=== PATIENT | male | born 1990 | race African-American/Black ===

== ENCOUNTER 2023-05-05 11:07 | Outpatient (CLI) | payer MEDICARE, MEDICAID | END 2023-05-05 11:08 | disposition home or self-care (01) | LOC: SCSRAD 11:07 | PROVIDERS: ATTEND Family Medicine Sports Medicine | DX: M25.512 Pain in left shoulder (principal) ==

== ENCOUNTER 2024-01-03 14:46 | Inpatient (IN) | payer MEDICARE, MEDICAID ==
[2024-01-03 15:35] LABS: #Basophils 0.03 10x3/uL (0.0-0.2); %Basophils 0.8 % (0.0-1.0); %Eosinophils 4.6 % (0.0-10.0); %Lymphocytes 27.6 % (21.0-51.0); %Monocytes 14.7 % (0.0-10.0); %Neutrophils 52.3 % (42.0-75.0); Hematocrit 29.3 % (42.0-52.0); Hemoglobin 9.4 g/dL (14.0-18.0); Mean Corpuscular HGB CONC 32.1 g/dL (32.0-36.0); Mean Corpuscular Hemoglobin 30.6 pg (27.0-31.0); Mean Corpuscular Volume 95.4 fL (78.0-98.0); Mean Platelet Volume 10.4 fL (7.4-10.4); Platelet Count 224 10x3/uL (130-400); RBC Distribution Width 13.8 % (11.5-14.5); Red Blood Cell (RBC) Count 3.07 mill/uL (4.70-6.10)
[2024-01-03 16:09] LABS: ALT (SGPT) 49 U/L (8-55); AST (SGOT) 32 U/L (5-34); Albumin 3.6 g/dL (3.5-5.0); Alkaline Phosphatase 179 U/L (40-110); Anion Gap 18 mmol/L (10-20); BUN (Urea Nitrogen) 53 mg/dL (8.9-20.6); Bilirubin, Total 0.7 mg/dL (0.2-1.2); Calc. Creatinine Clearance 0 mL/min (70-130); Calcium 6.3 mg/dL (7.8-10.44); Carbon Dioxide 17 mmol/L (22-29); Chloride 112 mmol/L (98-107); Estimated GFR 8; Globulin 4.1 g/dL (2.4-3.5); Glucose 74 mg/dL (70-105); Potassium 4.9 mmol/L (3.5-5.1); Protein, Total 7.7 g/dL (6.0-8.3); Sodium 142 mmol/L (136-145)
[2024-01-03 16:11] LABS: Troponin I 0.015 ng/mL (< 0.028)
[2024-01-03 17:26] LABS: Bacteria/HPF None Seen HPF (None Seen); Bilirubin Negative (Negative); Blood, Urine Trace (Negative); CAUTI Indications for Culture Alt mental st,lethar; Clarity Clear (Clear); Glucose, Urine (Dipstick) Normal (Negative); Ketone, Urine Negative (Negative); Leukocyte Negative Leu/uL (Negative); Nitrite Negative (Negative); Protein, Urine (Dipstick) 100 mg/dL (Neg-Trace); RBC/HPF 0-3 HPF (0-3); Specific Gravity, Urine 1.009 (1.002-1.036); Squamous Epithelial None Seen HPF (0-3); Urobilinogen Normal mg/dL (Less than 2); WBC/HPF 0-3 HPF (0-3); pH, Urine 6.5 (5.0-9.0)
[2024-01-03 18:07] LABS: Urine Culture Reflex No No
[2024-01-03] MEDS ORDERED: Ondansetron ODT 4 MG TAB PO PRN (18:38)
[2024-01-03] MEDS ORDERED: Dextrose 5% in Water 1,000 ML IV PRN (18:38)
[2024-01-03] MEDS ORDERED: Glucagon 1 MG/ML KIT IM PRN (18:38)
[2024-01-03] MEDS ORDERED: Ondansetron PF 4 MG/2 ML Vial IVP PRN (18:38)
[2024-01-03] MEDS ORDERED: Dextrose 50% Abboject 50 ML SYRINGE SLOW IVP PRN (18:38)
[2024-01-03] MEDS ORDERED: Acetaminophen 650 MG Suppository PR PRN (18:38)
[2024-01-03] MEDS ORDERED: HumaLOG 300 UNITS/3 ML VIAL SC PRN ×2 (18:38)
[2024-01-03 21:54] VITALS: BMI 28.0
[2024-01-04 04:03] LABS: #Basophils 0.03 10x3/uL (0.0-0.2); %Basophils 0.8 % (0.0-1.0); %Eosinophils 4.9 % (0.0-10.0); %Lymphocytes 18.2 % (21.0-51.0); %Monocytes 12.7 % (0.0-10.0); %Neutrophils 63.1 % (42.0-75.0); Hematocrit 26.9 % (42.0-52.0); Hemoglobin 8.6 g/dL (14.0-18.0); Mean Corpuscular Hemoglobin 29.8 pg (27.0-31.0); Mean Corpuscular Volume 93.1 fL (78.0-98.0); Mean Platelet Volume 10.5 fL (7.4-10.4); Platelet Count 205 10x3/uL (130-400); RBC Distribution Width 13.6 % (11.5-14.5); Red Blood Cell (RBC) Count 2.89 mill/uL (4.70-6.10)
[2024-01-04 04:50] LABS: ALT (SGPT) 38 U/L (8-55); AST (SGOT) 27 U/L (5-34); Albumin 3.3 g/dL (3.5-5.0); Alkaline Phosphatase 166 U/L (40-110); Anion Gap 17 mmol/L (10-20); BUN (Urea Nitrogen) 50 mg/dL (8.9-20.6); Bilirubin, Total 0.6 mg/dL (0.2-1.2); Calc. Creatinine Clearance 14 mL/min (70-130); Calcium 6.1 mg/dL (7.8-10.44); Carbon Dioxide 19 mmol/L (22-29); Chloride 109 mmol/L (98-107); Estimated GFR 8; Globulin 3.7 g/dL (2.4-3.5); Glucose 119 mg/dL (70-105); Potassium 5.5 mmol/L (3.5-5.1); Sodium 139 mmol/L (136-145)
[2024-01-04] MEDS: Calcium Gluc 4.6 MEQ/10 ML (100 MG/ML) SLOW IVP ONE (05:16)
[2024-01-04] MEDS: CALCIUM GLUC 1 GM/NS 50 ML 1 GM in Premix 1 BAG IVPB SCH (05:19)
[2024-01-04] MEDS ORDERED: Heparin 10,000 UNITS/ 10 ML VIAL ONE ×2 (08:46→10:01)
[2024-01-04] MEDS ORDERED: Lidocaine 2% PF 5 ML VIAL ONE (10:02)
[2024-01-04] MEDS ORDERED: Bupivacaine 0.25% HCL 30 ML VIAL ONE (10:02)
[2024-01-04] MEDS ORDERED: EPINEPHrine 1 MG/ML VIAL ONE (10:02)
[2024-01-04] MEDS ORDERED: fentaNYL PF 100 MCG/2 ML SYRINGE ONE (10:44)
[2024-01-04] MEDS ORDERED: PROPOFOL 20 ML ONE (10:44)
[2024-01-04] MEDS ORDERED: Lidocaine 2% PF 100 mg/5 ml Syringe ONE (10:45)
[2024-01-04] MEDS ORDERED: Midazolam HCl 2 mg/2 ml Vial ONE (10:45)
[2024-01-04] MEDS ORDERED: Lidocaine 2% 6 ML (Jelly) SYR ONE (10:46)
[2024-01-04] MEDS ORDERED: Lidocaine 1% MPF 2 ML VIAL ONE (10:51)
[2024-01-04] MEDS ORDERED: CEFAZOLIN 2 GM VIAL ONE (10:54)
[2024-01-04] MEDS ORDERED: Sodium Chloride 0.9% 0 ML ONE (10:54)
[2024-01-04] MEDS ORDERED: Clindamycin/D5W 900 mg/50 ml Premix Bag ONE (10:59)
[2024-01-04] MEDS ORDERED: Ondansetron PF 4 MG/2 ML Vial ONE (11:18)
[2024-01-04] MEDS ORDERED: fentaNYL 50 mcg/mL 1 mL Vial ONE (12:47)
[2024-01-04 17:41] LABS: Hep B Core Total Index 0.17 S/CO (0-0.79); Hep C Index 0.08 S/CO (0-0.79)
[2024-01-04 17:44] LABS: HBsAg Index 0.24 S/CO (0-0.99); Hep B Core Total Ab NONREACTIVE (NonReactive); Hep B Surf Ag NONREACTIVE S/CO (NonReactive); Hep C IgG Ab NONREACTIVE S/CO (NonReactive)
[2024-01-04 18:12] LABS: Hep B Surf AB GRAYZONE (NonReactive)
[2024-01-04 18:17] LABS: HBSAB Concentration 10.39 mIU/mL
[2024-01-04] MEDS: Acetaminophen 325 MG TAB PO PRN (20:28)
[2024-01-04] MEDS: Atorvastatin Calcium 40 MG TAB PO SCH (22:55)
[2024-01-05] MEDS: Tuberculin PPD 0.1 ML VIAL I-DERMAL SCH (02:18)
[2024-01-05 04:50] LABS: #Basophils 0.03 10x3/uL (0.0-0.2); %Basophils 0.5 % (0.0-1.0); %Eosinophils 3.5 % (0.0-10.0); %Lymphocytes 14.5 % (21.0-51.0); %Monocytes 12.5 % (0.0-10.0); %Neutrophils 68.8 % (42.0-75.0); Hemoglobin 8.1 g/dL (14.0-18.0); Mean Corpuscular HGB CONC 32.4 g/dL (32.0-36.0); Mean Corpuscular Hemoglobin 30.8 pg (27.0-31.0); Mean Corpuscular Volume 95.1 fL (78.0-98.0); Mean Platelet Volume 10.3 fL (7.4-10.4); Platelet Count 195 10x3/uL (130-400); RBC Distribution Width 13.7 % (11.5-14.5); Red Blood Cell (RBC) Count 2.63 mill/uL (4.70-6.10)
[2024-01-05 05:36] LABS: ALT (SGPT) 33 U/L (8-55); AST (SGOT) 23 U/L (5-34); Albumin 2.8 g/dL (3.5-5.0); Alkaline Phosphatase 145 U/L (40-110); Anion Gap 14 mmol/L (10-20); BUN (Urea Nitrogen) 37 mg/dL (8.9-20.6); Bilirubin, Total 0.6 mg/dL (0.2-1.2); Calc. Creatinine Clearance 18 mL/min (70-130); Calcium 5.4 mg/dL (7.8-10.44); Carbon Dioxide 20 mmol/L (22-29); Chloride 114 mmol/L (98-107); Estimated GFR 11; Globulin 3.1 g/dL (2.4-3.5); Glucose 145 mg/dL (70-105); Potassium 5.8 mmol/L (3.5-5.1); Protein, Total 5.9 g/dL (6.0-8.3); Sodium 142 mmol/L (136-145)
[2024-01-05] MEDS: Calcium Gluc 4.6 MEQ/10 ML (100 MG/ML) SLOW IVP ONE (06:29)
[2024-01-05] MEDS: CALCIUM GLUC 1 GM/NS 50 ML 1 GM in Premix 1 BAG IVPB SCH (06:33)
[2024-01-05] MEDS ORDERED: Heparin 10,000 UNITS/ 10 ML VIAL ONE (09:08)
[2024-01-05] MEDS: Sevelamer Carbonate 800 MG TAB PO SCH (11:32)
[2024-01-05] MEDS: Lisinopril 20 MG TAB PO SCH (12:01)
[2024-01-05 14:19] LABS: HBSAB Concentration 12.18 mIU/mL; HBsAg Index 0.24 S/CO (0-0.99); Hep B Core Total Ab NONREACTIVE (NonReactive); Hep B Core Total Index 0.24 S/CO (0-0.79); Hep B Surf AB REACTIVE (NonReactive); Hep B Surf Ag NONREACTIVE S/CO (NonReactive); Hep C IgG Ab NONREACTIVE S/CO (NonReactive)
[2024-01-06 05:18] LABS: Hematocrit 26.8 % (42.0-52.0); Hemoglobin 8.5 g/dL (14.0-18.0)
[2024-01-06 06:03] LABS: Anion Gap 15 mmol/L (10-20); BUN (Urea Nitrogen) 30 mg/dL (8.9-20.6); Calc. Creatinine Clearance 18 mL/min (70-130); Calcium 6.8 mg/dL (7.8-10.44); Carbon Dioxide 25 mmol/L (22-29); Chloride 106 mmol/L (98-107); Estimated GFR 11; Glucose 78 mg/dL (70-105); Potassium 4.9 mmol/L (3.5-5.1); Sodium 141 mmol/L (136-145)
[2024-01-06 06:23] LABS: Hep B Core Total Index 0.11 S/CO (0-0.79); Hep C Index 0.08 S/CO (0-0.79)
[2024-01-06 06:26] LABS: HBsAg Index 0.28 S/CO (0-0.99); Hep B Core Total Ab NONREACTIVE (NonReactive); Hep B Surf Ag NONREACTIVE S/CO (NonReactive); Hep C IgG Ab NONREACTIVE S/CO (NonReactive)
[2024-01-06] MEDS ORDERED: Heparin 10,000 UNITS/ 10 ML VIAL ONE (10:26)
[2024-01-06 11:29] LABS: HBSAB Concentration 10.64 mIU/mL
[2024-01-06 11:30] LABS: Hep B Surf AB EQUIVOCAL (NonReactive)
[2024-01-06 14:18] LABS: Hep B Surface AG-Rflx Sendout Negative (Negative); Hepatitis B Core Total Negative (Negative); Hepatitis B Surface AB-Sendout Reactive (.)
[2024-01-07] MEDS: Amlodipine 5 MG TAB PO SCH ×2 (06:24→15:35)
[2024-01-07] MEDS: READ PPD TEST SITE PO SCH (06:24)
[2024-01-07] MEDS ORDERED: Heparin 10,000 UNITS/ 10 ML VIAL ONE (09:25)
[2024-01-07 17:09] VITALS: BP 164/94; TEMP 98.1
[2024-01-08] MEDS ORDERED: READ PPD TEST SITE PO SCH (02:00)
== END 2024-01-07 16:59 | disposition home or self-care (01) | DRG 673 ==
LOC: ERS 14:46 → 2SW 18:44 → OBSVTOIN 01-04 12:09
PROVIDERS: ADMIT Physician Assistant; ATTEND Family Medicine
PROC: 0JH63XZ Insertion of Tunneled Vascular Access Device into Chest Subcutaneous Tissue and Fascia, Percutaneous Approach (ICD-10-PCS; principal; 2024-01-04)
PROC: 02HV33Z Insertion of Infusion Device into Superior Vena Cava, Percutaneous Approach (ICD-10-PCS; 2024-01-04)
PROC: B5181ZA Fluoroscopy of Superior Vena Cava using Low Osmolar Contrast, Guidance (ICD-10-PCS; 2024-01-04)
PROC: B548ZZA Ultrasonography of Superior Vena Cava, Guidance (ICD-10-PCS; 2024-01-04)
PROC: 5A1D70Z Performance of Urinary Filtration, Intermittent, Less than 6 Hours Per Day (ICD-10-PCS; 2024-01-04)
PROC: 3E033XZ Introduction of Vasopressor into Peripheral Vein, Percutaneous Approach (ICD-10-PCS; 2024-01-04)
DX: I12.0 Hypertensive chronic kidney disease with stage 5 chronic kidney disease or end stage renal disease (principal); N18.6 End stage renal disease; E87.20 Acidosis, unspecified; E11.22 Type 2 diabetes mellitus with diabetic chronic kidney disease; E83.51 Hypocalcemia; D63.1 Anemia in chronic kidney disease; E87.5 Hyperkalemia; Z88.0 Allergy status to penicillin; Z90.49 Acquired absence of other specified parts of digestive tract; Z89.422 Acquired absence of other left toe(s); Z98.890 Other specified postprocedural states; Z99.2 Dependence on renal dialysis
CPT/HCPCS: 36415; 36416; 71045; 80048; 80053; 81001; 84484; 85014; 85018; 85025; 86580; 86704; 86706; 86803; 87340; 90935; 93005; 96365; A6258; C1751; C1752; G0257; G0378; J0171; J0613; J0665; J1644; J2001; J2250; J2405; J2704; J3010; J3490

== ENCOUNTER 2024-08-27 13:01 | Inpatient (IN) | payer MEDICARE, MEDICAID ==
[2024-08-27 14:09] LABS: Hematocrit 34.2 % (42.0-52.0); Hemoglobin 11.3 g/dL (14.0-18.0); Mean Corpuscular Hemoglobin 32.5 pg (27.0-31.0); Mean Corpuscular Volume 98.3 fL (78.0-98.0); Mean Platelet Volume 9.6 fL (7.4-10.4); Platelet Count 160 10x3/uL (130-400); RBC Distribution Width 16.4 % (11.5-14.5); Red Blood Cell (RBC) Count 3.48 mill/uL (4.70-6.10)
[2024-08-27 14:25] LABS: ALT (SGPT) 25 U/L (Less than 45); AST (SGOT) 35 U/L (11-34); Albumin 3.5 g/dL (3.1-4.5); Alkaline Phosphatase 68 U/L (40-110); Anion Gap 18 mmol/L (10-20); BUN (Urea Nitrogen) 45 mg/dL (8.9-20.6); Bilirubin, Total 0.4 mg/dL (0.3-1.2); Calc. Creatinine Clearance 0 mL/min (70-130); Calcium 7.8 mg/dL (7.8-10.44); Carbon Dioxide 24 mmol/L (22-29); Chloride 101 mmol/L (98-107); Estimated GFR 5; Globulin 4.1 g/dL (2.4-3.5); Glucose 111 mg/dL (70-105); Lipase 12 U/L (8-78); Protein, Total 7.6 g/dL (6.0-8.3); Sodium 139 mmol/L (136-145)
[2024-08-27 14:28] LABS: Troponin I 0.084 ng/mL (< 0.028)
[2024-08-27 14:30] LABS: Anisocytosis SLIGHT = 6-15 cells HPF (0-5); Band 3 % (5-11); Eosinophils 1 % (0-10); Lymphocytes 3 % (21-51); Monocytes 13 % (0-10); Neutrophil 79 % (42-75); Platelet Adequacy Comment Platelets Normal; Polychromasia SLIGHT = 2-3 cells HPF (0-2); Reactive Lymphocytes 1 % (0-10); Smudge Cells 11.9 %; Tear Drops SLIGHT = 2-5 cells HPF (0-1)
[2024-08-27] MEDS ORDERED: Morphine 2 MG/ML VIAL ONE (14:35)
[2024-08-27] MEDS ORDERED: Ondansetron PF 4 MG/2 ML Vial ONE (14:35)
[2024-08-27 18:01] LABS: Troponin I 0.087 ng/mL (< 0.028)
[2024-08-27] MEDS ORDERED: Heparin 5,000 UNITS/ML VIAL ONE (18:47)
[2024-08-27] MEDS ORDERED: Pantoprazole 40 MG VIAL ONE (18:48)
[2024-08-27] MEDS ORDERED: Sucralfate 1 GM/10 ML UDCUP ONE (18:48)
[2024-08-27] MEDS ORDERED: Aspirin Chewable 81 MG TAB ONE (18:48)
[2024-08-27] MEDS ORDERED: Heparin 25,000 units/D5W 500 ML IV SCH (19:00)
[2024-08-27] MEDS ORDERED: Heparin 25,000 UNITS/D5W 500 ml bag ONE (19:07)
[2024-08-27] MEDS ORDERED: Ondansetron ODT 4 MG TAB PO PRN (20:01)
[2024-08-27] MEDS ORDERED: Dextrose 5% in Water 1,000 ML IV PRN (20:04)
[2024-08-27] MEDS ORDERED: Glucagon 1 MG/ML KIT IM PRN (20:04)
[2024-08-27] MEDS ORDERED: Insulin Lispro 100 UNIT/ML 10 ML VIAL SC PRN ×2 (20:04)
[2024-08-27] MEDS ORDERED: Dextrose 50% Abboject 50 ML SYRINGE SLOW IVP PRN (20:04)
[2024-08-27] MEDS: Morphine 2 MG/ML VIAL SLOW IVP PRN (22:58)
[2024-08-27 23:20] LABS: Troponin I 0.083 ng/mL (< 0.028)
[2024-08-27 23:31] LABS: Influenza A by NAA DETECTED (NotDetected); Influenza B by NAA Not Detected (NotDetected); SARS-CoV-2 NAA Rapid Test Not Detected (NotDetected)
[2024-08-27 23:54] VITALS: BMI 26.5
[2024-08-28] MEDS: Oseltamivir 75 MG CAP PO SCH (00:14)
[2024-08-28] MEDS: Acetaminophen 325 MG TAB PO PRN (00:16)
[2024-08-28] MEDS: Lidocaine 2% Viscous Solution 10 ML, Aluminum & Magnesium Hydroxide 30 ML SSW SCH (00:45)
[2024-08-28] MEDS: Ondansetron PF 4 MG/2 ML Vial IVP PRN (02:03)
[2024-08-28 05:20] LABS: Hematocrit 35.3 % (42.0-52.0); Hemoglobin 11.3 g/dL (14.0-18.0); Mean Corpuscular Hemoglobin 32.2 pg (27.0-31.0); Mean Corpuscular Volume 100.6 fL (78.0-98.0); Mean Platelet Volume 9.7 fL (7.4-10.4); Platelet Count 156 10x3/uL (130-400); RBC Distribution Width 16.5 % (11.5-14.5); Red Blood Cell (RBC) Count 3.51 mill/uL (4.70-6.10)
[2024-08-28 05:28] LABS: Anion Gap 19 mmol/L (10-20); BUN (Urea Nitrogen) 42 mg/dL (8.9-20.6); Calc. Creatinine Clearance 8 mL/min (70-130); Calcium 7.9 mg/dL (7.8-10.44); Carbon Dioxide 24 mmol/L (22-29); Chloride 102 mmol/L (98-107); Estimated GFR 5; Glucose 112 mg/dL (70-105); Potassium 3.6 mmol/L (3.5-5.1); Sodium 141 mmol/L (136-145)
[2024-08-28 07:33] LABS: Anisocytosis SLIGHT = 6-15 cells HPF (0-5); Band 8 % (5-11); Burr Cells SLIGHT = 2-5 cells HPF (0-1); Elliptocytes SLIGHT = 2-5 cells HPF (0-1); Eosinophils 1 % (0-10); Lymphocytes 10 % (21-51); Macrocytosis SLIGHT = 6-15 cells HPF (0-5); Monocytes 14 % (0-10); Neutrophil 67 % (42-75); Platelet Adequacy Comment Platelets Normal; Polychromasia SLIGHT = 2-3 cells HPF (0-2)
[2024-08-28] MEDS: Sevelamer Carbonate 800 MG TAB PO SCH (08:51)
[2024-08-28] MEDS: Lisinopril 20 MG TAB PO SCH (08:51)
[2024-08-28] MEDS: Pantoprazole 40 MG VIAL IVP SCH (08:52)
[2024-08-28] MEDS ORDERED: Metoclopramide HCl 10 MG (2 mL) VIAL IVP PRN (09:52)
[2024-08-28] MEDS: Atorvastatin Calcium 40 MG TAB PO SCH (21:13)
[2024-08-29 04:20] LABS: Phosphorus 6.3 mg/dL (2.5-4.5)
[2024-08-29 04:23] LABS: Anion Gap 19 mmol/L (10-20); BUN (Urea Nitrogen) 39 mg/dL (8.9-20.6); Calc. Creatinine Clearance 8 mL/min (70-130); Calcium 7.8 mg/dL (7.8-10.44); Carbon Dioxide 26 mmol/L (22-29); Chloride 103 mmol/L (98-107); Estimated GFR 5; Glucose 131 mg/dL (70-105); Potassium 3.7 mmol/L (3.5-5.1); Sodium 144 mmol/L (136-145)
[2024-08-29 04:37] LABS: Hematocrit 35.2 % (42.0-52.0); Hemoglobin 11.4 g/dL (14.0-18.0); Mean Corpuscular HGB CONC 32.4 g/dL (32.0-36.0); Mean Corpuscular Hemoglobin 31.8 pg (27.0-31.0); Mean Corpuscular Volume 98.1 fL (78.0-98.0); Mean Platelet Volume 9.8 fL (7.4-10.4); Platelet Count 177 10x3/uL (130-400); RBC Distribution Width 16.3 % (11.5-14.5); Red Blood Cell (RBC) Count 3.59 mill/uL (4.70-6.10)
[2024-08-29 05:29] LABS: Band 4 % (5-11); Eosinophils 2 % (0-10); Large Platelets 5.1 % (0-5); Lymphocytes 21 % (21-51); Monocytes 13 % (0-10); Neutrophil 59 % (42-75); Platelet Adequacy Comment Platelets Normal; RBC Morphology Within Normal Limits; Smudge Cells 19.4 %
[2024-08-29] MEDS ORDERED: Oseltamivir 75 MG CAP PO SCH (09:00)
[2024-08-30 05:40] LABS: Anion Gap 21 mmol/L (10-20); BUN (Urea Nitrogen) 39 mg/dL (8.9-20.6); Calc. Creatinine Clearance 7 mL/min (70-130); Calcium 7.7 mg/dL (7.8-10.44); Carbon Dioxide 26 mmol/L (22-29); Chloride 100 mmol/L (98-107); Estimated GFR 4; Glucose 153 mg/dL (70-105); Potassium 3.7 mmol/L (3.5-5.1); Sodium 143 mmol/L (136-145)
[2024-08-30] MEDS ORDERED: Oseltamivir 75 MG CAP PO SCH ×2 (09:00)
[2024-08-30 09:09] VITALS: BP 104/67; TEMP 98.1
== END 2024-08-30 13:37 | disposition home or self-care (01) | DRG 193 ==
LOC: ERS 13:01 → OBSVTOIN 20:01 → INTOOBSV 20:01 → ERHOLD 20:01 → 2SE 21:53
PROVIDERS: ADMIT Internal Medicine; ATTEND Family Medicine
PROC: 5A1D70Z Performance of Urinary Filtration, Intermittent, Less than 6 Hours Per Day (ICD-10-PCS; principal; 2024-08-27)
DX: J10.01 Influenza due to other identified influenza virus with the same other identified influenza virus pneumonia (principal); N18.6 End stage renal disease; I12.0 Hypertensive chronic kidney disease with stage 5 chronic kidney disease or end stage renal disease; I5A Non-ischemic myocardial injury (non-traumatic); E78.5 Hyperlipidemia, unspecified; D63.1 Anemia in chronic kidney disease; E10.22 Type 1 diabetes mellitus with diabetic chronic kidney disease; Z99.2 Dependence on renal dialysis; Z90.49 Acquired absence of other specified parts of digestive tract; Z89.422 Acquired absence of other left toe(s)
CPT/HCPCS: 36415; 71045; 74176; 80048; 80053; 82010; 83690; 83880; 84100; 84484; 85025; 87070; 87205; 90935; 93005; 96374; 96375; 96376; G0257; G0378; J1644; J2272; J2405; J2470

== ENCOUNTER 2024-09-07 19:34 | Inpatient (IN) | payer MEDICARE, MEDICAID ==
[~2024-09-07 19:34] MED LIST: Iopamidol 370 76% 100 ML VIAL ONE
[2024-09-07] MEDS ORDERED: Aspirin Chewable 81 MG TAB ONE (20:28)
[2024-09-07] MEDS ORDERED: Ondansetron PF 4 MG/2 ML Vial ONE (20:28)
[2024-09-07] MEDS ORDERED: Famotidine/PF 20 mg/2ml Vial ONE (20:29)
[2024-09-07 22:22] LABS: Actual Bicarbonate (HCO3v) 28.4 mEq/L (22-28); Analyzer IN Cardio ER; Base Excess 0.9 mEq/L (-2.0 to +3.0); Calcium, Ionized (venous) 0.88 mmol/L (1.16-1.32); Chloride (VBG) 93 mmol/L (98-106); Hematocrit-VBG 59 % (42.0-52.0); Potassium (VBG) 3.73 mmol/L (3.70-5.30); Sodium 142 mmol/L (133-146); pH (venous) 7.334 (7.32-7.43)
[2024-09-07 22:27] LABS: #Basophils 0.03 10x3/uL (0.0-0.2); %Basophils 0.3 % (0.0-1.0); %Eosinophils 1.2 % (0.0-10.0); %Lymphocytes 12.3 % (21.0-51.0); %Monocytes 12.7 % (0.0-10.0); %Neutrophils 73.2 % (42.0-75.0); Hematocrit 17.1 % (42.0-52.0); Hemoglobin 5.7 g/dL (14.0-18.0); Mean Corpuscular HGB CONC 33.3 g/dL (32.0-36.0); Mean Corpuscular Hemoglobin 32.4 pg (27.0-31.0); Mean Corpuscular Volume 97.2 fL (78.0-98.0); Mean Platelet Volume 9.5 fL (7.4-10.4); Platelet Count 425 10x3/uL (130-400); RBC Distribution Width 15.9 % (11.5-14.5); Red Blood Cell (RBC) Count 1.76 mill/uL (4.70-6.10)
[2024-09-07] MEDS ORDERED: Ketorolac Tromethamine 30 MG (1 mL) VIAL ONE (22:48)
[2024-09-07] MEDS ORDERED: cefTRIAXone (ROCEPHIN) 2 GM VIAL ONE (22:48)
[2024-09-07] MEDS ORDERED: Azithromycin 500 MG VIAL ONE (22:48)
[2024-09-07] MEDS ORDERED: Sodium Chloride 0.9% 200 ML ONE (22:48)
[2024-09-07 22:49] LABS: ALT (SGPT) 20 U/L (Less than 45); AST (SGOT) 38 U/L (11-34); Acetaminophen Less than 10 mcg/mL (Less than 10); Albumin 3.2 g/dL (3.1-4.5); Alcohol Less than 10.0 mg/dL (Less than 10); Alkaline Phosphatase 77 U/L (40-110); Anion Gap 24 mmol/L (10-20); BUN (Urea Nitrogen) 50 mg/dL (8.9-20.6); Bilirubin, Total 0.5 mg/dL (0.3-1.2); Calc. Creatinine Clearance 0 mL/min (70-130); Calcium 7.6 mg/dL (7.8-10.44); Carbon Dioxide 28 mmol/L (22-29); Chloride 92 mmol/L (98-107); Estimated GFR 2; Globulin 4.8 g/dL (2.4-3.5); Glucose 75 mg/dL (70-105); Lipase 19 U/L (8-78); Magnesium 2.3 mg/dL (1.6-2.6); Potassium 3.7 mmol/L (3.5-5.1); Salicylate Less than 8.0 mg/dL (Less than 8.0); Sodium 140 mmol/L (136-145)
[2024-09-07 23:33] LABS: Troponin I 0.018 ng/mL (< 0.028)
[2024-09-07] MEDS ORDERED: Acetaminophen 325 MG TAB PO PRN (23:53)
[2024-09-07] MEDS ORDERED: Dextrose 50% Abboject 50 ML SYRINGE SLOW IVP PRN (23:53)
[2024-09-07] MEDS ORDERED: Dextrose 5% in Water 1,000 ML IV PRN (23:53)
[2024-09-07] MEDS ORDERED: Glucagon 1 MG/ML KIT IM PRN (23:53)
[2024-09-08 00:28] LABS: D-Dimer Test 1.7 mcg/mL (0.27-0.43)
[2024-09-08 00:29] LABS: #Basophils 0.03 10x3/uL (0.0-0.2); %Basophils 0.4 % (0.0-1.0); %Eosinophils 1.2 % (0.0-10.0); %Lymphocytes 13.6 % (21.0-51.0); %Neutrophils 70.4 % (42.0-75.0); Hematocrit 34.5 % (42.0-52.0); Hemoglobin 11.3 g/dL (14.0-18.0); Mean Corpuscular HGB CONC 32.8 g/dL (32.0-36.0); Mean Corpuscular Hemoglobin 31.8 pg (27.0-31.0); Mean Corpuscular Volume 97.2 fL (78.0-98.0); Mean Platelet Volume 9.4 fL (7.4-10.4); Platelet Count 289 10x3/uL (130-400); RBC Distribution Width 15.7 % (11.5-14.5); Red Blood Cell (RBC) Count 3.55 mill/uL (4.70-6.10)
[2024-09-08] MEDS ORDERED: [UNRECOGNIZED DRUG - REMARK] FS SCH (01:15)
[2024-09-08] MEDS: Lidocaine 10 ML, Aluminum & Magnesium Hydroxide 30 ML SSW SCH (02:27)
[2024-09-08] MEDS: Vancomycin (BATCH) 1.5 GM in Premix 1 BAG IVPB SCH (02:28)
[2024-09-08 05:24] LABS: Lactic Acid 1.65 mmol/L (0.50-2.20)
[2024-09-08 06:06] LABS: #Basophils Less than 0.03 10x3/uL (0.0-0.2); %Basophils 0.3 % (0.0-1.0); %Eosinophils 1.6 % (0.0-10.0); %Lymphocytes 22.6 % (21.0-51.0); %Monocytes 14.8 % (0.0-10.0); %Neutrophils 60.4 % (42.0-75.0); Hematocrit 32.9 % (42.0-52.0); Hemoglobin 10.7 g/dL (14.0-18.0); Mean Corpuscular HGB CONC 32.5 g/dL (32.0-36.0); Mean Corpuscular Hemoglobin 31.3 pg (27.0-31.0); Mean Corpuscular Volume 96.2 fL (78.0-98.0); Mean Platelet Volume 9.4 fL (7.4-10.4); Platelet Count 284 10x3/uL (130-400); RBC Distribution Width 15.9 % (11.5-14.5); Red Blood Cell (RBC) Count 3.42 mill/uL (4.70-6.10)
[2024-09-08 06:25] LABS: Anion Gap 23 mmol/L (10-20); BUN (Urea Nitrogen) 48 mg/dL (8.9-20.6); Calc. Creatinine Clearance 0 mL/min (70-130); Carbon Dioxide 26 mmol/L (22-29); Chloride 96 mmol/L (98-107); Estimated GFR 2; Glucose 122 mg/dL (70-105); Sodium 141 mmol/L (136-145)
[2024-09-08 08:54] VITALS: BMI 26.9
[2024-09-08] MEDS ORDERED: Vancomycin 1 GM in Premix 1 BAG IVPB SCH (09:00)
[2024-09-08] MEDS: Sevelamer Carbonate 800 MG TAB PO SCH (09:29)
[2024-09-08] MEDS: Cefepime 1 GM in Sodium Chloride 0.9% 100 ML IVPB SCH (09:29)
[2024-09-08] MEDS: Lisinopril 20 MG TAB PO SCH (09:29)
[2024-09-08] MEDS: metroNIDAZOLE 500 MG TAB PO SCH (09:29)
[2024-09-08] MEDS: Heparin 5,000 UNITS/ML VIAL SC SCH (09:30)
[2024-09-08] MEDS ORDERED: Heparin 5,000 UNITS/ML VIAL ONE (20:01)
[2024-09-08] MEDS ORDERED: Atorvastatin Calcium 40 MG TAB ONE (20:01)
[2024-09-08] MEDS ORDERED: metroNIDAZOLE 500 MG TAB ONE (20:01)
[2024-09-08] MEDS: Atorvastatin Calcium 40 MG TAB PO SCH (20:15)
[2024-09-08] MEDS: Ondansetron PF 4 MG/2 ML Vial IVP PRN (23:19)
[2024-09-09] MEDS: traMADol HCl 50 MG TAB PO PRN (01:23)
[2024-09-09 04:41] LABS: Hematocrit 32.5 % (42.0-52.0); Hemoglobin 10.8 g/dL (14.0-18.0); Mean Corpuscular HGB CONC 33.2 g/dL (32.0-36.0); Mean Corpuscular Volume 96.4 fL (78.0-98.0); Mean Platelet Volume 9.2 fL (7.4-10.4); Platelet Count 285 10x3/uL (130-400); RBC Distribution Width 15.7 % (11.5-14.5); Red Blood Cell (RBC) Count 3.37 mill/uL (4.70-6.10)
[2024-09-09 05:08] LABS: Anion Gap 24 mmol/L (10-20); BUN (Urea Nitrogen) 54 mg/dL (8.9-20.6); Calc. Creatinine Clearance 4 mL/min (70-130); Calcium 7.5 mg/dL (7.8-10.44); Carbon Dioxide 24 mmol/L (22-29); Chloride 95 mmol/L (98-107); Estimated GFR 2; Glucose 193 mg/dL (70-105); Potassium 3.6 mmol/L (3.5-5.1); Sodium 139 mmol/L (136-145)
[2024-09-09 06:45] LABS: HBSAB Concentration 17.75 mIU/mL; HBsAg Index 0.25 S/CO (0-0.99); Hep B Core Total Ab NONREACTIVE (NonReactive); Hep B Core Total Index 0.14 S/CO (0-0.79); Hep B Surf AB REACTIVE (NonReactive); Hep B Surf Ag NONREACTIVE S/CO (NonReactive); Hep C IgG Ab NONREACTIVE S/CO (NonReactive); Hep C Index 0.07 S/CO (0-0.79)
[2024-09-09 11:23] LABS: Vancomycin, Random 35.8 ug/mL (See Comment)
[2024-09-09] MEDS: Morphine 2 MG/ML VIAL SLOW IVP SCH (16:37)
[2024-09-09] MEDS: Prochlorperazine 10 MG/2 ML VIAL IVP SCH (17:00)
[2024-09-09] MEDS: Lorazepam 2 MG/ML VIAL SLOW IVP SCH (20:00)
[2024-09-10] MEDS: Midodrine HCl 5 MG TAB PO SCH ×2 (05:11→06:27)
[2024-09-10 08:15] LABS: Vancomycin, Trough 32.8 ug/mL
[2024-09-10 12:53] LABS: Amphetamine Not Detected (NotDetected); Barbiturates Screen Not Detected (NotDetected); Benzodiazepine Screen Not Detected (NotDetected); Cocaine Metabolite Screen Not Detected (NotDetected); Methadone Not Detected (NotDetected); Methamphetamine Not Detected (NotDetected); Opiate Screen Detected (NotDetected); Oxycodone Screen Not Detected (NotDetected); Phencyclidine (PCP) Not Detected (NotDetected); THC/Cannabinoid Screen Not Detected (NotDetected); Tricyclic Screen Not Detected (NotDetected)
[2024-09-10] MEDS: Pantoprazole 40 MG VIAL IVP SCH (14:11)
[2024-09-10] MEDS: Prochlorperazine Edisylate 10 MG in Sodium Chloride 0.9% 50 ML IVPB PRN (15:17)
[2024-09-10] MEDS: Morphine 2 MG/ML VIAL SLOW IVP PRN (15:20)
[2024-09-10] MEDS: Dicyclomine 10 MG CAP PO SCH ×2 (15:29→16:36)
[2024-09-11] MEDS: Lorazepam 2 MG/ML VIAL SLOW IVP SCH ×2 (01:39→03:40)
[2024-09-11] MEDS: Sodium Chloride 0.9% 500 ML IV SCH (02:35)
[2024-09-11 05:02] LABS: #Basophils 0.05 10x3/uL (0.0-0.2); %Basophils 0.8 % (0.0-1.0); %Eosinophils 3.8 % (0.0-10.0); %Lymphocytes 17.2 % (21.0-51.0); %Neutrophils 60.7 % (42.0-75.0); Hemoglobin 11.9 g/dL (14.0-18.0); Mean Corpuscular HGB CONC 33.1 g/dL (32.0-36.0); Mean Corpuscular Hemoglobin 32.2 pg (27.0-31.0); Mean Corpuscular Volume 97.6 fL (78.0-98.0); Mean Platelet Volume 9.4 fL (7.4-10.4); Platelet Count 314 10x3/uL (130-400); Red Blood Cell (RBC) Count 3.69 mill/uL (4.70-6.10)
[2024-09-11 05:20] LABS: ALT (SGPT) 18 U/L (Less than 45); AST (SGOT) 30 U/L (11-34); Albumin 3.3 g/dL (3.1-4.5); Alkaline Phosphatase 75 U/L (40-110); Anion Gap 26 mmol/L (10-20); BUN (Urea Nitrogen) 33 mg/dL (8.9-20.6); Bilirubin, Total 0.5 mg/dL (0.3-1.2); Calc. Creatinine Clearance 5 mL/min (70-130); Carbon Dioxide 22 mmol/L (22-29); Chloride 101 mmol/L (98-107); Estimated GFR 2; Globulin 4.8 g/dL (2.4-3.5); Glucose 145 mg/dL (70-105); Lipase 27 U/L (8-78); Potassium 3.8 mmol/L (3.5-5.1); Protein, Total 8.1 g/dL (6.0-8.3); Sodium 145 mmol/L (136-145)
[2024-09-11] MEDS: Sodium Chloride 0.9% 100 ML ONE ×2 (08:40)
[2024-09-11] MEDS: Pantoprazole 40 MG VIAL IVP SCH ×2 (09:35→15:01)
[2024-09-11] MEDS: Metoclopramide HCl 10 MG (2 mL) VIAL IVP SCH (15:01)
[2024-09-11] MEDS: Sodium Chloride 0.9% 1,000 ML IV SCH (16:14)
[2024-09-11] MEDS: Cyclobenzaprine 10 MG TAB PO SCH (22:57)
[2024-09-12 01:55] LABS: Actual Bicarbonate (HCO3v) 21.8 mEq/L (22-28); Analyzer IN Cardio ER; Base Excess -1.4 mEq/L (-2.0 to +3.0); Calcium, Ionized (venous) 0.88 mmol/L (1.16-1.32); Chloride (VBG) 97 mmol/L (98-106); Hematocrit-VBG 36 % (42.0-52.0); Hemoglobin (Hb) 12.2 g/dL (13.2-17.3); Potassium (VBG) 3.55 mmol/L (3.70-5.30); Sodium 140 mmol/L (133-146); pH (venous) 7.453 (7.32-7.43)
[2024-09-12 01:56] LABS: #Basophils 0.04 10x3/uL (0.0-0.2); %Basophils 0.5 % (0.0-1.0); %Eosinophils 0.6 % (0.0-10.0); %Lymphocytes 6.4 % (21.0-51.0); %Monocytes 7.9 % (0.0-10.0); %Neutrophils 84.1 % (42.0-75.0); Hematocrit 34.8 % (42.0-52.0); Mean Corpuscular HGB CONC 31.6 g/dL (32.0-36.0); Mean Corpuscular Hemoglobin 31.8 pg (27.0-31.0); Mean Corpuscular Volume 100.6 fL (78.0-98.0); Mean Platelet Volume 9.2 fL (7.4-10.4); Platelet Count 284 10x3/uL (130-400); RBC Distribution Width 15.9 % (11.5-14.5); Red Blood Cell (RBC) Count 3.46 mill/uL (4.70-6.10)
[2024-09-12] MEDS ORDERED: Sodium Chloride 0.9% 100 ML BAG IVPB PRN (02:00)
[2024-09-12 02:11] LABS: Phosphorus 6.5 mg/dL (2.5-4.5)
[2024-09-12 02:12] LABS: Albumin 3.4 g/dL (3.1-4.5); Anion Gap 30 mmol/L (10-20); BUN (Urea Nitrogen) 33 mg/dL (8.9-20.6); BUN/Creatinine Ratio 1.46; Calc. Creatinine Clearance 5 mL/min (70-130); Calcium 8.3 mg/dL (7.8-10.44); Carbon Dioxide 17 mmol/L (22-29); Chloride 99 mmol/L (98-107); Estimated GFR 2; Glucose 169 mg/dL (70-105); Magnesium 2.3 mg/dL (1.6-2.6); Potassium 3.7 mmol/L (3.5-5.1); Sodium 142 mmol/L (136-145)
[2024-09-12 02:32] LABS: Anion Gap 31 mmol/L (10-20); BUN (Urea Nitrogen) 33 mg/dL (8.9-20.6); Calc. Creatinine Clearance 5 mL/min (70-130); Calcium 8.4 mg/dL (7.8-10.44); Carbon Dioxide 16 mmol/L (22-29); Chloride 99 mmol/L (98-107); Estimated GFR 2; Glucose 169 mg/dL (70-105); Potassium 3.7 mmol/L (3.5-5.1); Sodium 142 mmol/L (136-145)
[2024-09-12] MEDS: Cefdinir 300 MG CAP PO SCH (09:21)
[2024-09-13 06:43] LABS: Anion Gap 10 mmol/L (10-20); BUN (Urea Nitrogen) 11 mg/dL (8.9-20.6); Calc. Creatinine Clearance 11 mL/min (70-130); Calcium 5.6 mg/dL (7.8-10.44); Carbon Dioxide 18 mmol/L (22-29); Chloride 118 mmol/L (98-107); Estimated GFR 7; Glucose 61 mg/dL (70-105); Potassium 2.5 mmol/L (3.5-5.1); Sodium 143 mmol/L (136-145)
[2024-09-13] MEDS: Calcium Carbonate 500 MG ChewTAB PO SCH (10:31)
[2024-09-13] MEDS: CALCIUM GLUC 1 GM/NS 50 ML 1 GM in Premix 1 BAG IVPB SCH (10:31)
[2024-09-13] MEDS: Potassium Bicarbonate/Cit Ac 20 MEQ TAB PO SCH ×2 (10:32→16:55)
[2024-09-13] MEDS ORDERED: Ondansetron PF 4 MG/2 ML Vial IVP PRN (13:37)
[2024-09-13] MEDS: Ondansetron PF 4 MG/2 ML Vial IVP SCH (14:19)
[2024-09-14 06:16] LABS: Anion Gap 15 mmol/L (10-20); BUN (Urea Nitrogen) 20 mg/dL (8.9-20.6); Calc. Creatinine Clearance 6 mL/min (70-130); Calcium 8.3 mg/dL (7.8-10.44); Carbon Dioxide 28 mmol/L (22-29); Chloride 99 mmol/L (98-107); Estimated GFR 3; Glucose 101 mg/dL (70-105); Potassium 4.3 mmol/L (3.5-5.1); Sodium 138 mmol/L (136-145)
[2024-09-14] MEDS ORDERED: Heparin 10,000 UNITS/ 10 ML VIAL ONE ×2 (10:27→10:29)
[2024-09-14] MEDS ORDERED: fentaNYL 50 mcg/mL 1 mL Vial ONE (10:45)
[2024-09-14] MEDS ORDERED: PROPOFOL 0 ML ONE (10:45)
[2024-09-14] MEDS ORDERED: Ondansetron PF 4 MG/2 ML Vial ONE (10:45)
[2024-09-14] MEDS ORDERED: Midazolam HCl 2 mg/2 ml Vial ONE (10:45)
[2024-09-14] MEDS ORDERED: Dexamethasone 20 MG/5 ML VIAL ONE (10:45)
[2024-09-14] MEDS ORDERED: Lidocaine 1% PF 5 ML VIAL ONE (10:45)
[2024-09-14] MEDS ORDERED: Rocuronium Bromide 10 MG/ML (10ML VIAL) ONE (10:46)
[2024-09-14] MEDS ORDERED: PROPOFOL 20 ML ONE ×2 (11:28→11:56)
[2024-09-14] MEDS: Calcium Carbonate 500 MG ChewTAB PO SCH (13:49)
[2024-09-14 16:47] VITALS: BMI 26.9
[2024-09-14] MEDS: traMADol HCl 50 MG TAB PO PRN (20:31)
[2024-09-15 08:10] VITALS: TEMP 97.9
[2024-09-15 09:37] VITALS: BP 102/64
[2024-09-15] MEDS ORDERED: Heparin 10,000 UNITS/ 10 ML VIAL ONE (09:58)
[2024-09-15] MEDS ORDERED: Bupivacaine 0.25% HCL 30 ML VIAL ONE ×2 (09:58→11:24)
[2024-09-15] MEDS ORDERED: EPINEPHrine 1 MG/ML VIAL ONE (09:58)
[2024-09-15] MEDS ORDERED: Etomidate 40 MG (20 mL) VIAL ONE (10:02)
[2024-09-15] MEDS ORDERED: PROPOFOL 20 ML ONE (10:03)
[2024-09-15] MEDS ORDERED: Sodium Chloride 0.9% 100 ML ONE (10:20)
[2024-09-15] MEDS ORDERED: CEFAZOLIN 2 GM VIAL ONE (10:20)
[2024-09-15 10:25] LABS: Hematocrit 31.1 % (42.0-52.0); Hemoglobin 10.1 g/dL (14.0-18.0); Mean Corpuscular HGB CONC 32.5 g/dL (32.0-36.0); Mean Corpuscular Hemoglobin 32.2 pg (27.0-31.0); Platelet Count 226 10x3/uL (130-400); RBC Distribution Width 15.8 % (11.5-14.5); Red Blood Cell (RBC) Count 3.14 mill/uL (4.70-6.10)
[2024-09-15 10:44] LABS: Anion Gap 16 mmol/L (10-20); BUN (Urea Nitrogen) 15 mg/dL (8.9-20.6); Calc. Creatinine Clearance 10 mL/min (70-130); Calcium 8.2 mg/dL (7.8-10.44); Carbon Dioxide 27 mmol/L (22-29); Chloride 103 mmol/L (98-107); Estimated GFR 6; Glucose 113 mg/dL (70-105); Potassium 4.4 mmol/L (3.5-5.1); Sodium 142 mmol/L (136-145)
[2024-09-15] MEDS ORDERED: Rocuronium Bromide 10 MG/ML (10ML VIAL) ONE (11:13)
[2024-09-15] MEDS ORDERED: PHENYLEPHRINE-NS 100 MCG/ML 10 ML SYRINGE ONE (11:53)
[2024-09-15] MEDS ORDERED: SUGAMMADEX SODIUM 200 MG/2 ML VIAL ONE (11:57)
[2024-09-15] MEDS ORDERED: Ondansetron PF 4 MG/2 ML Vial ONE (11:58)
[2024-09-15] MEDS ORDERED: fentaNYL 50 mcg/mL 1 mL Vial ONE ×3 (12:21→13:13)
[2024-09-15] MEDS ORDERED: fentaNYL PF 100 MCG/2 ML SYRINGE ONE (12:46)
== END 2024-09-15 14:50 | disposition home or self-care (01) | DRG 673 ==
LOC: ERS 19:34 → ERHOLD 23:30 → 2NO 09-08 22:28 → T4-B 09-09 15:18
PROVIDERS: ADMIT Student in an Organized Health Care Education/Training Program; ATTEND Family Medicine
PROC: 0WPG43Z Removal of Infusion Device from Peritoneal Cavity, Percutaneous Endoscopic Approach (ICD-10-PCS; principal; 2024-09-15)
PROC: 06HY33Z Insertion of Infusion Device into Lower Vein, Percutaneous Approach (ICD-10-PCS; 2024-09-15)
PROC: 0DB58ZX Excision of Esophagus, Via Natural or Artificial Opening Endoscopic, Diagnostic (ICD-10-PCS; 2024-09-15)
PROC: 0DB68ZX Excision of Stomach, Via Natural or Artificial Opening Endoscopic, Diagnostic (ICD-10-PCS; 2024-09-15)
PROC: 0JH63WZ Insertion of Totally Implantable Vascular Access Device into Chest Subcutaneous Tissue and Fascia, Percutaneous Approach (ICD-10-PCS; 2024-09-15)
PROC: 05HM33Z Insertion of Infusion Device into Right Internal Jugular Vein, Percutaneous Approach (ICD-10-PCS; 2024-09-15)
PROC: B5131ZA Fluoroscopy of Right Jugular Veins using Low Osmolar Contrast, Guidance (ICD-10-PCS; 2024-09-15)
DX: I12.0 Hypertensive chronic kidney disease with stage 5 chronic kidney disease or end stage renal disease (principal); J15.9 Unspecified bacterial pneumonia; E87.20 Acidosis, unspecified; N17.9 Acute kidney failure, unspecified; N18.6 End stage renal disease; J10.1 Influenza due to other identified influenza virus with other respiratory manifestations; D63.1 Anemia in chronic kidney disease; I10 Essential (primary) hypertension; E10.319 Type 1 diabetes mellitus with unspecified diabetic retinopathy without macular edema; K29.70 Gastritis, unspecified, without bleeding; K20.90 Esophagitis, unspecified without bleeding; R10.13 Epigastric pain; K21.9 Gastro-esophageal reflux disease without esophagitis; E10.42 Type 1 diabetes mellitus with diabetic polyneuropathy; E78.5 Hyperlipidemia, unspecified; Z99.2 Dependence on renal dialysis; Z79.4 Long term (current) use of insulin; Z88.0 Allergy status to penicillin; Z90.49 Acquired absence of other specified parts of digestive tract; Z98.890 Other specified postprocedural states; Z79.899 Other long term (current) drug therapy
CPT/HCPCS: 36415; 36416; 71045; 74177; 80048; 80053; 80069; 80202; 80306; 80307; 82805; 83605; 83615; 83690; 83735; 83880; 84484; 85025; 85027; 85379; 85384; 86704; 86706; 86803; 86850; 86900; 86901; 87040; 87340; 87428; 87633; 88305; 90935; 90945; 93005; 96374; 96375; C1752; G0257; J0171; J0456; J0613; J0665; J0692; J0696; J0780; J1100; J1644; J1885; J2060; J2250; J2272; J2405; J2470; J2704; J2765; J3010; J3370; J3490; J7030; Q9967